=== PATIENT | female | born 1945 | race Caucasian/White ===

== ENCOUNTER 2022-11-28 09:16 | Outpatient (CLI) | payer MEDICARE ==
[2022-11-28] MEDS ORDERED: Magnevist 469MG/ML 20 ML VIAL ONE (09:58)
== END 2022-11-28 09:17 | disposition home or self-care (01) ==
LOC: CSHMRI 09:16
PROVIDERS: ATTEND Otolaryngology
DX: H91.8X3 Other specified hearing loss, bilateral (principal); R90.82 White matter disease, unspecified
CPT/HCPCS: 70553; 82565; A9579

== ENCOUNTER 2025-06-28 09:03 | Outpatient (CLI) | payer MEDICARE | END 2025-06-28 09:04 | disposition home or self-care (01) | LOC: CSHSLEEP 09:03 | DX: G47.33 Obstructive sleep apnea (adult) (pediatric) (principal); R53.83 Other fatigue; R09.89 Other specified symptoms and signs involving the circulatory and respiratory systems; K21.9 Gastro-esophageal reflux disease without esophagitis; R35.1 Nocturia | CPT/HCPCS: 95811 ==